=== PATIENT | male | born 1990 | race Two or more races ===

== ENCOUNTER 2019-07-08 21:59 | Inpatient (IN) | payer MEDICAID ==
[~2019-07-08] VITALS: Ht 172.7 cm; Wt 89.9 kg
[2019-07-08] MEDS ORDERED: SODIUM CHLORIDE FLUSH 10ML SYR IVF ONE (23:00)
[2019-07-08] MEDS ORDERED: SODIUM CHLORIDE 0.9% 1,000ML IVBOLUS ONE (23:00)
--- NOTE | 2019-07-08 23:30 | NUR ---
pt attempted for urine sample however unable to produce sample. iv placed, labs drawn.
[2019-07-08 23:38] LABS: MEAN CORPUSCULAR HGB CONC 34.1 g/dL (33.2-36.2); MEAN CORPUSCULAR VOLUME 84.9 fL (81-97); MEAN PLATELET VOLUME 8.4 fL (7.4-10.4); PLATELET COUNT 242 x10^3/uL (130-400); RED BLOOD COUNT 5.24 x10^6/uL (4.38-5.82)
--- NOTE | 2019-07-08 23:40 | NUR ---
RN to bedside, provided with multiple blankets and warmer. Patient complains of painful fingers. Fingers appear discolored, and patient reports difficulty moving them. RN removed wet clothes in addition to providing with warm blankets. Patient agreeable with urine sample, attempted to provide but unable. Asked task RN to initated peripheral intravenous catheterization. Per task RN complete. Visualized fluids running at the moment.
[2019-07-08 23:46] LABS: ALBUMIN 3.7 g/dL (3.4-5.0); CALCIUM 6.9 mg/dL (8.5-10.1); CHLORIDE 82 mmol/L (98-107); CREATININE 9.42 mg/dL (0.7-1.3)
[2019-07-08 23:55] LABS: ALANINE AMINOTRANSFERASE 1044 U/L (12-78); ALKALINE PHOSPHATASE 113 U/L (45-117); BILIRUBIN,TOTAL 0.9 mg/dL (0.2-1.0); TOTAL PROTEIN 8.1 g/dL (6.4-8.2)
[2019-07-08 23:56] LABS: MD YES
[2019-07-08 23:57] LABS: ANION GAP 31 mmol/L (5-15); BANDS%(MANUAL) 8 % (0-7); LYMPHS% (MANUAL) 2 % (22-44); METAMYELOCYTES# (MANUAL) 0.15 x10^3/uL (0-0); METAMYELOCYTES% (MANUAL) 1 % (0-1); MONOS#(MANUAL) 1.05 x10^3/uL (0.3-2.7); MONOS% (MANUAL) 7 % (2-9); SEGS% (MANUAL) 82 % (42-75)
[2019-07-08 23:58] LABS: PMNS WITH VACUOLES 1+; POLYCHROMASIA 1+
[2019-07-08] MEDS ORDERED: SODIUM CHLORIDE 0.9% 1,000 ML IV ONE (23:58)
[2019-07-08 23:59] LABS: TEAR DROPS 1+
[2019-07-09] LABS: <PLATELET ESTIMATE> ADEQUATE; LARGE PLATELETS 1+
--- NOTE | 2019-07-09 00:15 | NUR ---
Recieved update from provider that patient has severely abnormal lab results. Provider to bedside, rn assisted patient with chest xray, task rn at bedside to initiate second peripheral intravenous access. Also informed patient is hypoglycemic, rn returned with orange juice and sugar to assist in treated hypoglycemia. Patient agreeable to uds, will attempt after completion of ekg and iv access.
[2019-07-09] MEDS ORDERED: LORazepam 2 MG/ML, 1ML ONE ×2 (00:23→01:40)
[2019-07-09] MEDS ORDERED: VANCOMYCIN 1,800 MG in SODIUM CHLORIDE 0.9% 250 ML IV ONE (00:30)
[2019-07-09] MEDS ORDERED: PIPERACILLIN/TAZO/PMX 4.5GM 100 ML IVPB ONE (00:30)
[2019-07-09] MEDS ORDERED: MORPHINE SULFATE 4 MG/ML, 1ML ONE (00:30)
[2019-07-09] MEDS ORDERED: LORazepam 2 MG/ML, 1ML IVPush ONE ×2 (00:30→02:00)
[2019-07-09] MEDS ORDERED: VANCOMYCIN PER PHARMACY MC ONE (00:30)
[2019-07-09] MEDS ORDERED: PIPERACILLIN/TAZO/PMX 3.375GM 50 ML ONE (00:36)
[2019-07-09 00:43] LABS: SALICYLATE LEVEL 3.6 mg/dL (2.8-20.0)
[2019-07-09 00:49] LABS: TROPONIN I 0.864 ng/mL (0.000-0.045)
[2019-07-09] MEDS ORDERED: DEXTROSE 50%, 50ML SYRINGE ONE (00:50)
[2019-07-09] MEDS ORDERED: SODIUM CHLORIDE 0.9% 1,000ML IVBOLUS ONE ×3 (01:00→02:00)
[2019-07-09] MEDS ORDERED: MORPHINE SULFATE 4 MG/ML, 1ML IVPush PRN (01:00)
[2019-07-09] MEDS ORDERED: DEXTROSE 50%, 50ML SYRINGE IVPush ONE (01:00)
[2019-07-09] MEDS ORDERED: ASPIRIN 81 MG TABLET CHEW PO ONE (01:00)
[2019-07-09 01:16] LABS: CREATINE KINASE, TOTAL > 102000 U/L (39-308)
[2019-07-09 01:28] LABS: INTERNATIONAL NORMALIZED RATIO 1.01 (0.93-1.1); PROTHROMBIN TIME 10.7 Seconds (9.6-11.5)
[2019-07-09 01:34] LABS: MICROSCOPIC AUTO
--- NOTE | 2019-07-09 01:34 | NUR ---
REPORT OF PT FROM MATT HERNANDEZ AND ASSUMING CARE OF PT AT THIS TIME.
[2019-07-09 01:36] LABS: CULTURE INDICATED? NO
--- NOTE | 2019-07-09 01:52 | NUR ---
PT RESTLESS AND AGITATED AND UNABLE TO PROTECT AIRWAY WELL ON HIS OWN. DR. SPEAR NOTIFIED OF PT CONDITION. PT TRANSFERRED TO [facility] AT THIS TIME FOR IMMEDIATE INTUBATION OF PT. DR. ESPINOSA AT FOR PT HISTORY AND ASSESSMENT.
[2019-07-09] MEDS ORDERED: PHARMACY MAY ADJ FOR RENAL FX MC PRN ×2 (02:00)
[2019-07-09] MEDS ORDERED: ETOMIDATE 20 MG/10 ML IVPush ONE (02:00)
[2019-07-09] MEDS ORDERED: VANCOMYCIN PER PHARMACY MC PRN ×2 (02:00→16:00)
[2019-07-09] MEDS ORDERED: ROCURONIUM 10 MG/ML,10ML IVPush ONE (02:00)
[2019-07-09] MEDS ORDERED: HEPARIN 5,000 UNITS/ML, 1ML SQ SCH (02:00)
[2019-07-09] MEDS ORDERED: SODIUM CHLORIDE 0.9%, 500ML IVBOLUS PRN ×2 (02:00)
[2019-07-09] MEDS: SODIUM BICARBONATE 8.4% 150 MEQ in SODIUM CHLORIDE 0.45% 1,000 ML IV SCH ×3 (02:02→18:19)
[2019-07-09 02:17] LABS: AMPHETAMINE SCREEN, URINE Positive (Negative); BARBITURATE SCREEN, URINE Negative (Negative); BENZODIAZEPINE SCREEN, URINE Negative (Negative); CANNABINOID SCREEN, URINE Negative (Negative); COCAINE SCREEN, URINE Negative (Negative); METHADONE SCREEN, URINE Negative (Negative); OPIATE SCREEN, URINE Negative (Negative)
[2019-07-09] MEDS ORDERED: LACTULOSE 3.3 GM/5 ML ORAL.SOL RC ONE (02:30)
--- NOTE | 2019-07-09 03:02 | NUR ---
PHARM CALLED AND MEDS REQUESTED
--- NOTE | 2019-07-09 03:03 | NUR ---
LATE ENTRY:R-IJ PLACED AND LEFT FEMORAL SHORT TERM DIALYSIS CATH PLACED BY ER . PT TOLERATED WELL. PT REMAINS ADEQUATELY SEDATED AT THIS TIME.
--- NOTE | 2019-07-09 03:12 | NUR ---
VANCO RESTARTED AT THIS TIME.
[2019-07-09] MEDS ORDERED: VANCOMYCIN PMX 1GM/200ML 200 ML IV ONE (03:30)
[2019-07-09] MEDS ORDERED: PROPOFOL 100 ML IV PRN (03:30)
[2019-07-09] MEDS ORDERED: SODIUM BICARB 8.4%, 50ML SYRINGE ONE (04:03)
[2019-07-09] MEDS ORDERED: SODIUM BICARBONATE 1 MEQ/ML, 50ML VIAL IVPush STA (04:06)
[2019-07-09] MEDS ORDERED: LIDOCAINE-MPF 1%, 2ML ENDO PRN (04:30)
[2019-07-09] MEDS ORDERED: LACTULOSE 20 GM/30 ML UDC NG PRN (04:30)
[2019-07-09] MEDS ORDERED: PHARMACY MAY ADJ FOR RENAL FX MC SCH (04:30)
[2019-07-09] MEDS ORDERED: DEXTROSE 4 GM TAB.CHEW PO PRN (04:30)
[2019-07-09] MEDS ORDERED: SENNA 176 MG/5 ML ORAL SOL NG PRN (04:30)
[2019-07-09] MEDS: ALBUTEROL/IPRATROPIUM 2.5MG/0.5MG, 3 ML INLINE SCH ×6 (04:30→23:00)
[2019-07-09] MEDS ORDERED: PHARMACOKINETIC CONSULTATION MC ONE (04:30)
[2019-07-09] MEDS ORDERED: BISACODYL 10 MG SUPP PR PRN (04:30)
[2019-07-09] MEDS ORDERED: PHARMACOKINETIC MONITORING MC PRN (04:30)
[2019-07-09] MEDS ORDERED: SODIUM BICARB 8.4%, 50ML SYRINGE IVPush ONE (04:30)
[2019-07-09] MEDS ORDERED: SENNA/DOCUSATE TABLET NG PRN (04:30)
[2019-07-09] MEDS ORDERED: GLUCAGON 1 MG IM PRN (04:30)
[2019-07-09] MEDS ORDERED: FENTANYL PF 100 MCG/2ML IVPush PRN (04:30)
[2019-07-09] MEDS ORDERED: DEXTROSE 50%, 50ML SYRINGE IVPush PRN (04:30)
[2019-07-09 04:45] LABS: D-DIMER 3.18 ug/mlFEU (0.00-0.52); INTERNATIONAL NORMALIZED RATIO 1.08 (0.93-1.1); MEAN CORPUSCULAR HEMOGLOBIN 28.9 pg (27.5-34.5); MEAN CORPUSCULAR HGB CONC 33.9 g/dL (33.2-36.2); MEAN CORPUSCULAR VOLUME 85.4 fL (81-97); MEAN PLATELET VOLUME 8.4 fL (7.4-10.4); PLATELET COUNT 176 x10^3/uL (130-400); PROTHROMBIN TIME 11.5 Seconds (9.6-11.5); RED BLOOD COUNT 4.04 x10^6/uL (4.38-5.82); RED CELL DISTRIBUTION WIDTH 13.2 % (9.4-14.8)
[2019-07-09 04:47] LABS: CHLORIDE 91 mmol/L (98-107)
[2019-07-09] MEDS: PANTOPRAZOLE 40 MG IV IV SCH (05:02)
[2019-07-09] MEDS: HEPARIN 5,000 UNITS/ML, 1ML SQ SCH ×3 (05:02→20:02)
[2019-07-09 05:06] LABS: ALANINE AMINOTRANSFERASE 645 U/L (12-78); ALBUMIN 2.3 g/dL (3.4-5.0); ALKALINE PHOSPHATASE 68 U/L (45-117); ANION GAP 21 mmol/L (5-15); BILIRUBIN,TOTAL 0.7 mg/dL (0.2-1.0); CREATININE 8.15 mg/dL (0.7-1.3); TOTAL PROTEIN 5.3 g/dL (6.4-8.2); TRIGLYCERIDES 89 mg/dL (50-200); TROPONIN I 0.809 ng/mL (0.000-0.045)
[2019-07-09 05:12] LABS: CALCIUM 5.4 mg/dL (8.5-10.1)
[2019-07-09 05:13] VITALS: BP 120/81
[2019-07-09 05:46] LABS: BASOPHILS # (AUTO) 0.01 x10^3/uL (0-0.1); BASOPHILS % (AUTO) 0 % (0-1); EOSINOPHILS % (AUTO) 0 % (1-7); LYMPHOCYTES % (AUTO) 2 % (22-44); MD SCAN; MONOCYTES # (AUTO) 0.33 x10^3/uL (0.2-0.8); MONOCYTES % (AUTO) 3 % (2-9); NEUTROPHILS # (AUTO) 10.81 x10^3/uL (1.8-6.8); NEUTROPHILS % (AUTO) 95 % (42-75)
[2019-07-09] MEDS: PROPOFOL 100 ML IV PRN ×4 (06:58→20:50)
[2019-07-09] MEDS ORDERED: INSULIN LISPRO 100 UNITS/ML, PEN SQ-INSULIN SCH ×2 (07:00)
[2019-07-09] MEDS: CEFTRIAXONE PMX 2GM/50ML 50 ML IV SCH (09:40)
[2019-07-09] MEDS: SODIUM CHLORIDE FLUSH 10ML SYR IVF SCH ×2 (09:40→20:03)
[2019-07-09] MEDS ORDERED: PIPERACILLIN/TAZO/PMX 4.5GM 50 ML IVPB SCH (10:00)
[2019-07-09] MEDS: AZITHROMYCIN 500 MG in SODIUM CHLORIDE 0.9% 250 ML IV SCH (10:35)
[2019-07-09 10:38] LABS: TROPONIN I 0.717 ng/mL (0.000-0.045)
[2019-07-09 12:25] LABS: CREATINE KINASE, TOTAL 40882 U/L (39-308)
[2019-07-09] MEDS ORDERED: ROCURONIUM 10MG/ML,5ML ONE (14:01)
[2019-07-09] MEDS ORDERED: ETOMIDATE 40 MG/20 ML ONE (14:01)
[2019-07-09] MEDS ORDERED: PROPOFOL 10 MG/ML, 100ML IV ONE (14:01)
[2019-07-09] MEDS: INSULIN LISPRO 100 UNITS/ML, PEN SQ-INSULIN SCH ×2 (15:00→20:03)
[2019-07-09 15:22] LABS: ALBUMIN 2.1 g/dL (3.4-5.0); ANION GAP 19 mmol/L (5-15); CHLORIDE 93 mmol/L (98-107); CREATININE 5.35 mg/dL (0.7-1.3); IRON LEVEL 20 mcg/dL (65-175)
[2019-07-09 15:30] LABS: MEAN CORPUSCULAR HGB CONC 34.5 g/dL (33.2-36.2); MEAN CORPUSCULAR VOLUME 84.2 fL (81-97); MEAN PLATELET VOLUME 8.3 fL (7.4-10.4); PLATELET COUNT 140 x10^3/uL (130-400); RED BLOOD COUNT 3.93 x10^6/uL (4.38-5.82)
[2019-07-09 15:31] LABS: MD YES
[2019-07-09 15:47] LABS: % IRON SATURATION 12 % (20-55); TOTAL IRON BINDING CAPACITY 170 mcg/dL (250-450)
[2019-07-09 16:00] LABS: BAND#(MANUAL) 1.65 x10^3/uL; BANDS%(MANUAL) 19 % (0-7); LYMPH#(MANUAL) 0.35 x10^3/uL (1-3.4); LYMPHS% (MANUAL) 4 % (22-44); MONOS#(MANUAL) 0.26 x10^3/uL (0.3-2.7); MONOS% (MANUAL) 3 % (2-9); SEG#(MANUAL) 6.44 x10^3/uL (1.8-6.8); SEGS% (MANUAL) 74 % (42-75)
[2019-07-09 16:01] LABS: ANISOCYTOSIS 1+; POLYCHROMASIA 1+
[2019-07-09 16:02] LABS: <PLATELET ESTIMATE> ADEQUATE; <PLT MORPHOLOGY> NORMAL PLT MORPH
[2019-07-09 18:10] LABS: CREATINE KINASE, TOTAL 58887 U/L (39-308)
[2019-07-10] MEDS: PROPOFOL 100 ML IV PRN ×3 (00:09→06:14)
[2019-07-10] MEDS: PANTOPRAZOLE 40 MG IV IV SCH (01:27)
[2019-07-10] MEDS: ALBUTEROL/IPRATROPIUM 2.5MG/0.5MG, 3 ML INLINE SCH ×3 (02:02→11:55)
[2019-07-10] MEDS: SODIUM BICARBONATE 8.4% 150 MEQ in SODIUM CHLORIDE 0.45% 1,000 ML IV SCH (02:35)
[2019-07-10] MEDS: INSULIN LISPRO 100 UNITS/ML, PEN SQ-INSULIN SCH ×4 (03:00→20:47)
[2019-07-10 04:00] VITALS: BP 116/55
[2019-07-10] MEDS: HEPARIN 5,000 UNITS/ML, 1ML SQ SCH ×3 (05:17→20:44)
[2019-07-10 05:34] LABS: ALANINE AMINOTRANSFERASE 436 U/L (12-78); ANION GAP 15 mmol/L (5-15); CHLORIDE 95 mmol/L (98-107); CREATININE 5.52 mg/dL (0.7-1.3)
[2019-07-10 05:35] LABS: BASOPHILS # (AUTO) 0.07 x10^3/uL (0-0.1); BASOPHILS % (AUTO) 1 % (0-1); EOSINOPHILS # (AUTO) 0.01 x10^3/uL (0-0.4); EOSINOPHILS % (AUTO) 0 % (1-7); LYMPHOCYTES # (AUTO) 0.47 x10^3/uL (1-3.4); LYMPHOCYTES % (AUTO) 7 % (22-44); MD NO; MEAN CORPUSCULAR HEMOGLOBIN 29.2 pg (27.5-34.5); MEAN CORPUSCULAR HGB CONC 34.2 g/dL (33.2-36.2); MEAN CORPUSCULAR VOLUME 85.3 fL (81-97); MEAN PLATELET VOLUME 7.8 fL (7.4-10.4); MONOCYTES # (AUTO) 0.25 x10^3/uL (0.2-0.8); MONOCYTES % (AUTO) 4 % (2-9); NEUTROPHILS % (AUTO) 89 % (42-75); PLATELET COUNT 126 x10^3/uL (130-400); RED BLOOD COUNT 3.68 x10^6/uL (4.38-5.82); RED CELL DISTRIBUTION WIDTH 13.9 % (9.4-14.8)
[2019-07-10 05:44] LABS: VANCOMYCIN,RANDOM 12.5 mcg/mL
[2019-07-10 05:59] LABS: ALKALINE PHOSPHATASE 61 U/L (45-117); BILIRUBIN,TOTAL 0.5 mg/dL (0.2-1.0); TOTAL PROTEIN 4.9 g/dL (6.4-8.2)
[2019-07-10 06:10] LABS: CREATINE KINASE, TOTAL 32901 U/L (39-308)
[2019-07-10] MEDS ORDERED: PHARMACOKINETIC CONSULTATION MC ONE (06:30)
[2019-07-10] MEDS ORDERED: VANCOMYCIN 1,600 MG in SODIUM CHLORIDE 0.9% 250 ML IV ONE (06:30)
[2019-07-10] MEDS ORDERED: PHARMACOKINETIC MONITORING MC PRN (06:30)
[2019-07-10] MEDS: CEFTRIAXONE PMX 2GM/50ML 50 ML IV SCH (09:37)
[2019-07-10] MEDS: SODIUM CHLORIDE FLUSH 10ML SYR IVF SCH ×2 (09:38→20:46)
[2019-07-10] MEDS: AZITHROMYCIN 500 MG in SODIUM CHLORIDE 0.9% 250 ML IV SCH (13:04)
[2019-07-11] MEDS: PANTOPRAZOLE 40 MG IV IV SCH (02:36)
[2019-07-11] MEDS: INSULIN LISPRO 100 UNITS/ML, PEN SQ-INSULIN SCH (03:00)
[2019-07-11 04:00] VITALS: BP 106/52
[2019-07-11] MEDS: HEPARIN 5,000 UNITS/ML, 1ML SQ SCH ×3 (04:10→21:01)
[2019-07-11 04:17] LABS: BASOPHILS # (AUTO) 0.03 x10^3/uL (0-0.1); BASOPHILS % (AUTO) 0 % (0-1); EOSINOPHILS # (AUTO) 0.02 x10^3/uL (0-0.4); EOSINOPHILS % (AUTO) 0 % (1-7); LYMPHOCYTES # (AUTO) 0.41 x10^3/uL (1-3.4); LYMPHOCYTES % (AUTO) 6 % (22-44); MD NO; MEAN CORPUSCULAR HEMOGLOBIN 29.4 pg (27.5-34.5); MEAN CORPUSCULAR HGB CONC 34.5 g/dL (33.2-36.2); MEAN CORPUSCULAR VOLUME 85.3 fL (81-97); MEAN PLATELET VOLUME 7.9 fL (7.4-10.4); MONOCYTES # (AUTO) 0.27 x10^3/uL (0.2-0.8); MONOCYTES % (AUTO) 4 % (2-9); NEUTROPHILS # (AUTO) 5.76 x10^3/uL (1.8-6.8); NEUTROPHILS % (AUTO) 89 % (42-75); PLATELET COUNT 132 x10^3/uL (130-400); RED BLOOD COUNT 3.68 x10^6/uL (4.38-5.82); RED CELL DISTRIBUTION WIDTH 13.5 % (9.4-14.8)
[2019-07-11 04:38] LABS: ANION GAP 8 mmol/L (5-15); CALCIUM 7.5 mg/dL (8.5-10.1); CHLORIDE 103 mmol/L (98-107)
[2019-07-11 04:49] LABS: CREATINE KINASE, TOTAL 13730 U/L (39-308)
[2019-07-11] MEDS: CEFTRIAXONE PMX 2GM/50ML 50 ML IV SCH (07:57)
[2019-07-11] MEDS: SODIUM CHLORIDE FLUSH 10ML SYR IVF SCH ×2 (07:57→21:02)
[2019-07-11] MEDS: IRON SUCROSE COMPLEX 100MG/5ML IV SCH (09:32)
[2019-07-11] MEDS: ERGOCALCIFEROL 50,000 UNIT CAPSULE PO SCH (09:32)
[2019-07-11] MEDS ORDERED: INSULIN LISPRO 100 UNITS/ML, PEN SQ-INSULIN SCH (11:00)
[2019-07-11 23:07] VITALS: BP 137/75
[2019-07-12 01:52] VITALS: BP 135/81
[2019-07-12] MEDS: PANTOPRAZOLE 40 MG IV IV SCH (02:12)
[2019-07-12] MEDS: HEPARIN 5,000 UNITS/ML, 1ML SQ SCH ×3 (05:27→21:22)
[2019-07-12 05:56] LABS: ANION GAP 8 mmol/L (5-15); CALCIUM 7.9 mg/dL (8.5-10.1); CHLORIDE 104 mmol/L (98-107)
[2019-07-12 06:01] LABS: MEAN CORPUSCULAR HEMOGLOBIN 29.2 pg (27.5-34.5); MEAN CORPUSCULAR VOLUME 86.1 fL (81-97); MEAN PLATELET VOLUME 8.2 fL (7.4-10.4); PLATELET COUNT 98 x10^3/uL (130-400); RED BLOOD COUNT 3.85 x10^6/uL (4.38-5.82)
[2019-07-12 06:12] LABS: ALANINE AMINOTRANSFERASE 317 U/L (12-78); ALKALINE PHOSPHATASE 62 U/L (45-117); BILIRUBIN,TOTAL 0.4 mg/dL (0.2-1.0); CREATINE KINASE, TOTAL 5555 U/L (39-308); TOTAL PROTEIN 5.2 g/dL (6.4-8.2)
[2019-07-12 06:30] LABS: BASOPHILS # (AUTO) 0.01 x10^3/uL (0-0.1); BASOPHILS % (AUTO) 0 % (0-1); EOSINOPHILS % (AUTO) 2 % (1-7); LYMPHOCYTES # (AUTO) 0.68 x10^3/uL (1-3.4); LYMPHOCYTES % (AUTO) 12 % (22-44); MD SCAN; MONOCYTES # (AUTO) 0.54 x10^3/uL (0.2-0.8); MONOCYTES % (AUTO) 10 % (2-9); NEUTROPHILS # (AUTO) 4.17 x10^3/uL (1.8-6.8); NEUTROPHILS % (AUTO) 76 % (42-75)
[2019-07-12 06:41] VITALS: BP 122/76
[2019-07-12] MEDS: IRON SUCROSE COMPLEX 100MG/5ML IV SCH (08:34)
[2019-07-12] MEDS: CEFTRIAXONE PMX 2GM/50ML 50 ML IV SCH (08:40)
[2019-07-12] MEDS: SODIUM CHLORIDE FLUSH 10ML SYR IVF SCH ×2 (08:42→21:23)
[2019-07-12] MEDS ORDERED: MAGNESIUM SULFATE PMX 4GM/100M 100 ML IV ONE (11:00)
[2019-07-12 13:02] LABS: ALBUMIN 2.1 g/dL (3.4-5.0); ANION GAP 7 mmol/L (5-15); CALCIUM 8.2 mg/dL (8.5-10.1); CHLORIDE 102 mmol/L (98-107)
[2019-07-12 13:07] LABS: ALANINE AMINOTRANSFERASE 305 U/L (12-78); ALKALINE PHOSPHATASE 62 U/L (45-117); BILIRUBIN,TOTAL 0.3 mg/dL (0.2-1.0); CREATININE 3.02 mg/dL (0.7-1.3); TOTAL PROTEIN 5.6 g/dL (6.4-8.2)
[2019-07-12 14:33] VITALS: BP 145/73
[2019-07-12 19:57] VITALS: BP 132/78
[2019-07-13 02:26] VITALS: BP 140/83
[2019-07-13] MEDS: PANTOPRAZOLE 40 MG IV IV SCH (02:48)
[2019-07-13 05:42] LABS: MEAN CORPUSCULAR HEMOGLOBIN 29.1 pg (27.5-34.5); MEAN CORPUSCULAR HGB CONC 33.7 g/dL (33.2-36.2); MEAN CORPUSCULAR VOLUME 86.4 fL (81-97); RED BLOOD COUNT 3.86 x10^6/uL (4.38-5.82); RED CELL DISTRIBUTION WIDTH 13.5 % (9.4-14.8)
[2019-07-13 05:44] LABS: ALBUMIN 2.1 g/dL (3.4-5.0); ANION GAP 7 mmol/L (5-15); CALCIUM 8.2 mg/dL (8.5-10.1); CHLORIDE 105 mmol/L (98-107); CREATININE 2.62 mg/dL (0.7-1.3)
[2019-07-13] MEDS: HEPARIN 5,000 UNITS/ML, 1ML SQ SCH ×3 (05:49→19:19)
[2019-07-13] MEDS ORDERED: PHARMACY MAY ADJ FOR RENAL FX MC PRN (06:00)
[2019-07-13] MEDS: CEFAZOLIN PMX 2GM/50ML 50 ML IVPB SCH ×3 (06:02→21:06)
[2019-07-13 06:16] LABS: BASOPHILS # (AUTO) 0.02 x10^3/uL (0-0.1); BASOPHILS % (AUTO) 0 % (0-1); EOSINOPHILS # (AUTO) 0.11 x10^3/uL (0-0.4); EOSINOPHILS % (AUTO) 2 % (1-7); LYMPHOCYTES # (AUTO) 1.02 x10^3/uL (1-3.4); LYMPHOCYTES % (AUTO) 14 % (22-44); MD SCAN; MEAN PLATELET VOLUME 8.4 fL (7.4-10.4); MONOCYTES # (AUTO) 0.75 x10^3/uL (0.2-0.8); MONOCYTES % (AUTO) 10 % (2-9); NEUTROPHILS # (AUTO) 5.51 x10^3/uL (1.8-6.8); NEUTROPHILS % (AUTO) 74 % (42-75); PLATELET COUNT 79 x10^3/uL (130-400)
[2019-07-13] MEDS: SODIUM CHLORIDE FLUSH 10ML SYR IVF SCH ×2 (07:57→19:20)
[2019-07-13] MEDS: IRON SUCROSE COMPLEX 100MG/5ML IV SCH (07:57)
[2019-07-13 08:48] VITALS: BP 142/82
[2019-07-13] MEDS ORDERED: POTASSIUM CHLORIDE 20 MEQ TAB.ER.PRT PO ONE (14:00)
[2019-07-13 15:50] VITALS: BP 137/81
[2019-07-13 20:58] VITALS: BP 130/69
[2019-07-14 03:12] VITALS: BP 132/79
[2019-07-14] MEDS: HEPARIN 5,000 UNITS/ML, 1ML SQ SCH ×3 (03:13→20:47)
[2019-07-14] MEDS: PANTOPRAZOLE 40 MG IV IV SCH (03:13)
[2019-07-14] MEDS: CEFAZOLIN PMX 2GM/50ML 50 ML IVPB SCH ×3 (06:28→22:32)
[2019-07-14 06:39] VITALS: BP 130/78
[2019-07-14 08:47] LABS: ALANINE AMINOTRANSFERASE 149 U/L (12-78); ALBUMIN 2.1 g/dL (3.4-5.0); ANION GAP 10 mmol/L (5-15); CALCIUM 8.7 mg/dL (8.5-10.1); CHLORIDE 109 mmol/L (98-107); CREATININE 2.98 mg/dL (0.7-1.3)
[2019-07-14 08:49] LABS: ALKALINE PHOSPHATASE 59 U/L (45-117); BILIRUBIN,TOTAL 0.2 mg/dL (0.2-1.0); TOTAL PROTEIN 5.4 g/dL (6.4-8.2)
[2019-07-14 09:02] LABS: BASOPHILS # (AUTO) 0.03 x10^3/uL (0-0.1); BASOPHILS % (AUTO) 0 % (0-1); EOSINOPHILS # (AUTO) 0.14 x10^3/uL (0-0.4); EOSINOPHILS % (AUTO) 2 % (1-7); LYMPHOCYTES # (AUTO) 0.93 x10^3/uL (1-3.4); LYMPHOCYTES % (AUTO) 13 % (22-44); MD NO; MEAN CORPUSCULAR HEMOGLOBIN 29.4 pg (27.5-34.5); MEAN CORPUSCULAR HGB CONC 33.5 g/dL (33.2-36.2); MEAN CORPUSCULAR VOLUME 87.6 fL (81-97); MONOCYTES # (AUTO) 0.75 x10^3/uL (0.2-0.8); MONOCYTES % (AUTO) 10 % (2-9); NEUTROPHILS # (AUTO) 5.37 x10^3/uL (1.8-6.8); NEUTROPHILS % (AUTO) 74 % (42-75); PLATELET COUNT 133 x10^3/uL (130-400); RED BLOOD COUNT 3.69 x10^6/uL (4.38-5.82); RED CELL DISTRIBUTION WIDTH 13.9 % (9.4-14.8)
[2019-07-14] MEDS: IRON SUCROSE COMPLEX 100MG/5ML IV SCH (09:12)
[2019-07-14] MEDS: SODIUM CHLORIDE FLUSH 10ML SYR IVF SCH ×2 (09:12→21:00)
[2019-07-14 14:00] VITALS: BP 132/83
[2019-07-14 19:50] VITALS: BP 136/73
[2019-07-15 01:42] VITALS: BP 137/79
[2019-07-15] MEDS: PANTOPRAZOLE 40 MG IV IV SCH (05:26)
[2019-07-15] MEDS: CEFAZOLIN PMX 2GM/50ML 50 ML IVPB SCH ×3 (05:26→22:08)
[2019-07-15] MEDS: HEPARIN 5,000 UNITS/ML, 1ML SQ SCH ×3 (05:26→22:08)
[2019-07-15 07:28] VITALS: BP 139/84
[2019-07-15 10:03] LABS: ALBUMIN 2.2 g/dL (3.4-5.0); ANION GAP 7 mmol/L (5-15); CALCIUM 8.5 mg/dL (8.5-10.1); CHLORIDE 110 mmol/L (98-107); CREATININE 3.04 mg/dL (0.7-1.3)
[2019-07-15] MEDS: SODIUM CHLORIDE FLUSH 10ML SYR IVF SCH ×2 (10:23→21:00)
[2019-07-15] MEDS: IRON SUCROSE COMPLEX 100MG/5ML IV SCH (10:23)
[2019-07-15] MEDS ORDERED: MAGNESIUM SULFATE PMX 2GM/50ML 50 ML IV ONE (12:30)
[2019-07-15 13:33] VITALS: BP 136/88
[2019-07-15 18:57] VITALS: BP 133/77
[2019-07-16 01:40] VITALS: BP 132/72
[2019-07-16 05:47] LABS: ALANINE AMINOTRANSFERASE 50 U/L (12-78); ALBUMIN 2.3 g/dL (3.4-5.0); ANION GAP 9 mmol/L (5-15); CALCIUM 8.2 mg/dL (8.5-10.1); CHLORIDE 108 mmol/L (98-107)
[2019-07-16 05:49] LABS: ALKALINE PHOSPHATASE 64 U/L (45-117); BILIRUBIN,TOTAL 0.5 mg/dL (0.2-1.0); CREATININE 2.64 mg/dL (0.7-1.3); TOTAL PROTEIN 5.7 g/dL (6.4-8.2)
[2019-07-16 05:50] LABS: BASOPHILS # (AUTO) 0.02 x10^3/uL (0-0.1); BASOPHILS % (AUTO) 0 % (0-1); EOSINOPHILS # (AUTO) 0.19 x10^3/uL (0-0.4); EOSINOPHILS % (AUTO) 2 % (1-7); LYMPHOCYTES # (AUTO) 1.44 x10^3/uL (1-3.4); LYMPHOCYTES % (AUTO) 18 % (22-44); MD NO; MEAN CORPUSCULAR HEMOGLOBIN 29.3 pg (27.5-34.5); MEAN CORPUSCULAR HGB CONC 33.6 g/dL (33.2-36.2); MEAN CORPUSCULAR VOLUME 87.1 fL (81-97); MEAN PLATELET VOLUME 8.1 fL (7.4-10.4); MONOCYTES # (AUTO) 0.69 x10^3/uL (0.2-0.8); MONOCYTES % (AUTO) 8 % (2-9); NEUTROPHILS # (AUTO) 5.82 x10^3/uL (1.8-6.8); NEUTROPHILS % (AUTO) 71 % (42-75); PLATELET COUNT 178 x10^3/uL (130-400); RED BLOOD COUNT 3.37 x10^6/uL (4.38-5.82); RED CELL DISTRIBUTION WIDTH 13.9 % (9.4-14.8)
[2019-07-16] MEDS: PANTOPRAZOLE 40 MG IV IV SCH (05:53)
[2019-07-16] MEDS: CEFAZOLIN PMX 2GM/50ML 50 ML IVPB SCH ×3 (05:54→21:56)
[2019-07-16] MEDS: HEPARIN 5,000 UNITS/ML, 1ML SQ SCH ×3 (05:54→21:56)
[2019-07-16] MEDS ORDERED: MAGNESIUM SULFATE PMX 2GM/50ML 50 ML IV ONE (09:30)
[2019-07-16 09:54] VITALS: BP 149/90
[2019-07-16 15:09] VITALS: BP 122/74
[2019-07-16 19:30] VITALS: BP 129/86
[2019-07-17 00:41] VITALS: BP 150/81
[2019-07-17] MEDS: HEPARIN 5,000 UNITS/ML, 1ML SQ SCH ×3 (06:04→21:12)
[2019-07-17] MEDS: CEFAZOLIN PMX 2GM/50ML 50 ML IVPB SCH ×3 (06:04→21:12)
[2019-07-17 06:07] VITALS: BP 121/75
[2019-07-17] MEDS: PANTOPRAZOLE 40 MG IV IV SCH (06:07)
[2019-07-17 08:27] LABS: MEAN CORPUSCULAR HEMOGLOBIN 29.4 pg (27.5-34.5); MEAN CORPUSCULAR HGB CONC 33.6 g/dL (33.2-36.2); MEAN CORPUSCULAR VOLUME 87.4 fL (81-97); MEAN PLATELET VOLUME 7.7 fL (7.4-10.4); PLATELET COUNT 233 x10^3/uL (130-400); RED CELL DISTRIBUTION WIDTH 14.4 % (9.4-14.8)
[2019-07-17 08:33] LABS: ALBUMIN 2.5 g/dL (3.4-5.0); ANION GAP 8 mmol/L (5-15); CALCIUM 8.4 mg/dL (8.5-10.1); CHLORIDE 109 mmol/L (98-107); CREATININE 2.38 mg/dL (0.7-1.3)
[2019-07-17 09:37] LABS: BASOPHILS # (AUTO) 0.02 x10^3/uL (0-0.1); BASOPHILS % (AUTO) 0 % (0-1); EOSINOPHILS # (AUTO) 0.16 x10^3/uL (0-0.4); EOSINOPHILS % (AUTO) 2 % (1-7); LYMPHOCYTES % (AUTO) 15 % (22-44); MD SCAN; MONOCYTES # (AUTO) 0.71 x10^3/uL (0.2-0.8); MONOCYTES % (AUTO) 7 % (2-9); NEUTROPHILS % (AUTO) 76 % (42-75)
[2019-07-17 12:10] VITALS: BP 130/81
[2019-07-17 21:29] VITALS: BP 133/67
[2019-07-18 00:23] VITALS: BP 146/70
[2019-07-18] MEDS: HEPARIN 5,000 UNITS/ML, 1ML SQ SCH ×3 (05:31→21:36)
[2019-07-18] MEDS: PANTOPROZOLE 40MG TABLET PO SCH (05:31)
[2019-07-18] MEDS: CEFAZOLIN PMX 2GM/50ML 50 ML IVPB SCH ×3 (05:34→21:36)
[2019-07-18] MEDS: ERGOCALCIFEROL 50,000 UNIT CAPSULE PO SCH (08:43)
[2019-07-18 10:14] VITALS: BP 126/76
[2019-07-18 11:30] LABS: BASOPHILS # (AUTO) 0.03 x10^3/uL (0-0.1); BASOPHILS % (AUTO) 0 % (0-1); EOSINOPHILS # (AUTO) 0.13 x10^3/uL (0-0.4); EOSINOPHILS % (AUTO) 2 % (1-7); LYMPHOCYTES # (AUTO) 1.04 x10^3/uL (1-3.4); LYMPHOCYTES % (AUTO) 15 % (22-44); MD NO; MEAN CORPUSCULAR HEMOGLOBIN 29.3 pg (27.5-34.5); MEAN CORPUSCULAR HGB CONC 33.5 g/dL (33.2-36.2); MEAN CORPUSCULAR VOLUME 87.7 fL (81-97); MEAN PLATELET VOLUME 7.9 fL (7.4-10.4); MONOCYTES # (AUTO) 0.62 x10^3/uL (0.2-0.8); MONOCYTES % (AUTO) 9 % (2-9); NEUTROPHILS # (AUTO) 5.11 x10^3/uL (1.8-6.8); NEUTROPHILS % (AUTO) 74 % (42-75); PLATELET COUNT 255 x10^3/uL (130-400); RED BLOOD COUNT 3.54 x10^6/uL (4.38-5.82); RED CELL DISTRIBUTION WIDTH 14.7 % (9.4-14.8)
[2019-07-18 11:37] LABS: ANION GAP 7 mmol/L (5-15); CALCIUM 8.1 mg/dL (8.5-10.1); CHLORIDE 110 mmol/L (98-107); CREATININE 2.14 mg/dL (0.7-1.3)
[2019-07-18 14:08] VITALS: BP 132/73
[2019-07-18 19:00] VITALS: BP 125/87
[2019-07-19 01:50] VITALS: BP 122/77
[2019-07-19] MEDS: HEPARIN 5,000 UNITS/ML, 1ML SQ SCH ×2 (05:45→13:42)
[2019-07-19] MEDS: PANTOPROZOLE 40MG TABLET PO SCH (05:45)
[2019-07-19] MEDS: CEFAZOLIN PMX 2GM/50ML 50 ML IVPB SCH ×2 (05:45→13:41)
[2019-07-19 06:40] LABS: ANION GAP 5 mmol/L (5-15); CHLORIDE 112 mmol/L (98-107)
[2019-07-19 07:19] VITALS: BP 139/75
[2019-07-19 14:01] VITALS: BP 145/73
== END 2019-07-19 18:24 | DRG 871 ==
LOC: ED 07-09 01:02 → SUATTDRO 07-09 01:41 → EDIP 07-09 01:42 → CCU 07-09 03:32 → ICU 07-11 06:35 → 4WST 07-11 23:29
PROVIDERS: ADMIT Hospitalist; ATTEND Family Medicine
PROC: 5A1D70Z Performance of Urinary Filtration, Intermittent, Less than 6 Hours Per Day (ICD-10-PCS; principal; 2019-07-09)
PROC: 0BH17EZ Insertion of Endotracheal Airway into Trachea, Via Natural or Artificial Opening (ICD-10-PCS; 2019-07-09)
PROC: 5A1935Z Respiratory Ventilation, Less than 24 Consecutive Hours (ICD-10-PCS; 2019-07-09)
PROC: 5A1D70Z Performance of Urinary Filtration, Intermittent, Less than 6 Hours Per Day (ICD-10-PCS; 2019-07-10)
PROC: 5A1D70Z Performance of Urinary Filtration, Intermittent, Less than 6 Hours Per Day (ICD-10-PCS; 2019-07-11)
PROC: 02HV33Z Insertion of Infusion Device into Superior Vena Cava, Percutaneous Approach (ICD-10-PCS; 2019-07-11)
PROC: B548ZZA Ultrasonography of Superior Vena Cava, Guidance (ICD-10-PCS; 2019-07-11)
DX: A41.01 Sepsis due to Methicillin susceptible Staphylococcus aureus (principal); G93.41 Metabolic encephalopathy; K72.91 Hepatic failure, unspecified with coma; N17.0 Acute kidney failure with tubular necrosis; J18.9 Pneumonia, unspecified organism; J15.211 Pneumonia due to Methicillin susceptible Staphylococcus aureus; J96.01 Acute respiratory failure with hypoxia; E87.1 Hypo-osmolality and hyponatremia; M62.82 Rhabdomyolysis; N17.9 Acute kidney failure, unspecified; E72.20 Disorder of urea cycle metabolism, unspecified; Z99.11 Dependence on respirator [ventilator] status; R65.20 Severe sepsis without septic shock; R33.9 Retention of urine, unspecified; E88.09 Other disorders of plasma-protein metabolism, not elsewhere classified; E83.42 Hypomagnesemia; T36.95XA Adverse effect of unspecified systemic antibiotic, initial encounter; D63.8 Anemia in other chronic diseases classified elsewhere; D69.6 Thrombocytopenia, unspecified; E16.2 Hypoglycemia, unspecified; E83.51 Hypocalcemia; E86.0 Dehydration; E87.6 Hypokalemia; F15.90 Other stimulant use, unspecified, uncomplicated; F17.210 Nicotine dependence, cigarettes, uncomplicated; F20.9 Schizophrenia, unspecified; K75.89 Other specified inflammatory liver diseases; Z59.0 Homelessness; Z99.2 Dependence on renal dialysis
CPT/HCPCS: 31500; 36415; 36556; 36600; 70450; 71045; 74018; 76770; 76937; 77001; 80048; 80053; 80069; 80202; 80307; 81001; 82140; 82306; 82310; 82330; 82542; 82550; 82728; 82803; 82962; 83540; 83550; 83605; 83690; 83735; 83970; 84100; 84145; 84478; 84484; 85025; 85379; 85610; 85730; 86704; 86706; 87040; 87070; 87077; 87081; 87147; 87186; 87205; 87340; 87806; 90935; 93005; 93306; 94002; 94003; 94640; 96361; 96374; 96375; 99292; C1894; G0378; J0456; J0690; J0696; J1644; J1756; J2543; J2704; J3370; C1751; C9113; G0475; J1642; J2060; J3475; J7030; J7050